=== PATIENT | female | born 1975 | race African-American/Black ===

== ENCOUNTER 2019-08-18 17:41 | Emergency (ER) | payer MEDICAID ==
[~2019-08-18] VITALS: Ht 162.6 cm; Wt 86.4 kg
[2019-08-18 17:49] VITALS: Ht 162.6 cm; Wt 86.4 kg
[2019-08-18] MEDS ORDERED: METHOCARBAMOL500 MG PO (17:52)
[2019-08-18] MEDS ORDERED: METOPROLOL TART25 MG PO (20:11)
[2019-08-18 20:36] VITALS: BP 136/87
== END 2019-08-18 20:36 | disposition home or self-care (01) ==
LOC: D.ER 17:41
DX: M25.519 Pain in unspecified shoulder (principal); I10 Essential (primary) hypertension